=== PATIENT | female | born 1995 ===

== ENCOUNTER 2018-03-06 02:52 | Emergency (ER) | payer MEDICAID, OTHER ==
[2018-03-06 02:53] VITALS: BMI 28.5
[2018-03-06 03:07] VITALS: TEMP 98.5
[2018-03-06] MEDS ORDERED: Aluminum Hydroxide/Magnesium Hydroxide Susp (30 mL) PO STA (03:18)
[2018-03-06] MEDS ORDERED: Sodium Chloride 0.9% 500 ML IV ONE ×2 (03:18→03:26)
[2018-03-06] MEDS ORDERED: Aluminum Hydroxide/Magnesium Hydroxide Susp (30 mL) ONE (03:26)
[2018-03-06 03:29] LABS: BASO % 0.7 % (0.0-2.0); EOS # 0.2 K/uL (0.0-0.7); HEMOGLOBIN 12.4 g/dL (11.0-16.0); LYMPH # 3.1 K/uL (1.0-4.3); LYMPH % 47.7 % (20.0-40.0); MEAN CORPUSCULAR HEMOGLOBIN 29.2 pg (27.0-31.0); MEAN CORPUSCULAR HGB CONC 33.6 g/dL (33.0-37.0); MEAN PLATELET VOLUME 9.6 fL (7.2-11.7); MONO # 0.5 K/uL (0.0-0.8); MONO % 7.2 % (0.0-10.0); NEUT # 2.7 K/uL (1.8-7.0); NEUT % 41.4 % (50.0-75.0); NRBC % 0.1 % (0.0-2.0); RBC 4.25 Mil/uL (3.80-5.20); RED CELL DISTRIBUTION WIDTH 14.6 % (11.5-14.5); WHITE BLOOD COUNT 6.6 K/uL (4.8-10.8)
[2018-03-06 03:32] LABS: HCG,QUALITATIVE URINE NEGATIVE (NEGATIVE)
[2018-03-06 03:34] LABS: SQUAMOUS EPITHIAL 1 /hpf (0-5); URINE BILIRUBIN NEGATIVE (NEGATIVE); URINE BLOOD NEGATIVE (NEGATIVE); URINE CLARITY Clear (Clear); URINE COLOR Yellow (YELLOW); URINE GLUCOSE (UA) NORMAL (Normal); URINE LEUKOCYTE ESTERASE TRACE Leu/uL (Negative); URINE PROTEIN NEGATIVE (NEGATIVE); URINE UROBILINOGEN NORMAL mg/dL (0.2-1.0)
[2018-03-06 03:36] LABS: ALB/GLOB RATIO 1.3 (1.0-2.1); ALBUMIN 4.4 g/dL (3.5-5.0); ALT/SGPT 22 U/L (9-52); AST/SGOT 26 U/L (14-36); BLOOD UREA NITROGEN 12 mg/dL (7-17); CALCIUM 9.3 mg/dl (8.6-10.4); GFR NON-AFRICAN AMERICAN > 60; LIPASE 138 U/L (23-300)
--- NOTE | 2018-03-06 04:25 | C.PDOC ---
History Of Present Illness Pt presents to ED with c/o of epigastric pain radiating to mid back since last night with associated nausea. Pt denies any food association, no vomiting, diarrhea, constipation, fever, SOB, diaphoresis, dizziness. No past h/o of similar pain, no UTI sx Time Seen by Provider: 03/06/18 03:15 Chief Complaint (Nursing): Abdominal Pain History Per: Patient History/Exam Limitations: no limitations Current Symptoms Are (Timing): Still Present Severity: Moderate Location Of Pain/Discomfort: Epigastric Radiation Of Pain To:: Back Quality Of Discomfort: "Pain" Associated Symptoms: Nausea. denies: Fever, Vomiting, Chest Pain, Constipation , Urinary Symptoms Exacerbating Factors: Deep Breaths Last Bowel Movement: Today Recent travel outside of the [place]: No Past Medical History Vital Signs: Last Vital Signs Temp 98.5 F 03/06/18 03:03 Pulse 67 03/06/18 05:01 Resp 16 03/06/18 05:01 BP 106/60 03/06/18 05:01 Pulse Ox 98 03/06/18 06:01 - Medical History PMH: No Chronic Diseases Denies: Depression, Diabetes, HTN - [facility] Procedures ARTIF RUPT MEMBRANES NEC (01/24/15) DELIVERY OF PRODUCTS OF CONCEPTION, EXTERNAL APPROACH (11/23/17) MANUAL ASSIST DELIV NEC (01/24/15) REPAIR OB LACERATION NEC (01/24/15) REPAIR PERINEUM MUSCLE, OPEN APPROACH (11/23/17) Family History: States: Unknown Family Hx - Social History Hx Tobacco Use: No Hx Alcohol Use: No Hx Substance Use: No - Immunization History Hx Tetanus Toxoid Vaccination: No Hx Influenza Vaccination: No Hx Pneumococcal Vaccination: No Review Of Systems Constitutional: Negative for: Fever, Chills Cardiovascular: Negative for: Chest Pain, Palpitations Respiratory: Negative for: Shortness of Breath Gastrointestinal: Positive for: Nausea, Abdominal Pain Genitourinary: Negative for: Dysuria, Hematuria Musculoskeletal: Positive for: Back Pain Physical Exam - Physical Exam Appears: Well, Non-toxic Skin: Normal Color Head: Normacephalic Eye(s): bilateral: Normal Inspection, PERRL Chest: Symmetrical, No Tenderness Cardiovascular: Rhythm Regular Respiratory: Normal Breath Sounds Gastrointestinal/Abdominal: Bowel Sounds, Soft, Tenderness (epigatric/ RUQ), No Distention, No Guarding, No Rebound, Other ((+) pretty sign) Back: Normal Inspection, No CVA Tenderness Neurological/Psych: Oriented x3, Normal Speech Gait: Steady ED Course And Treatment - Laboratory Results Result Diagrams: 03/06/18 03:24 03/06/18 03:24 O2 Sat by Pulse Oximetry: 98 Pulse Ox Interpretation: Normal - CT Scan/US RUQ US Other Rad Studies (CT/US): Read By Radiologist, Radiology Report Reviewed CT/US Interpretation: Cholelithiasis with small pericholecystic fluid Progress Note: Pt with epigastric pain radiating to back. DDX; most likelyBiliary colic vs Gastritis. . Less likely-Abdominal aneurysm/ dissection. Labs, RUQ US ordered. toradol IV, pepcid IV ordered. Labs and US findinngs d/w pt. Pt is now comfortable, pain has resolved , taking PO with no vomiting or recurring pain. Pt advised PMD/ gen surg f/u. Diet and return precautions discussed to pt and relatives at bedside. Pt understand and agrees with plan Reevaluation Time: 05:58 Reassessment Condition: Improved Disposition Counseled Patient/Family Regarding: Studies Performed, Diagnosis, Need For Followup, Rx Given - Disposition Referrals: Onel Miguel MD [Staff Provider] - [facility] [Outside] Disposition: HOME/ ROUTINE Disposition Time: 05:59 Condition: STABLE Additional Instructions: Avoid greasy foods, fried foods, red meat Take meds as needed for pain Follow up with clinic and Dr miguel Return to ER if pain unrelieved with pain meds, fever , vomiting or worse Prescriptions: Naproxen [Naprosyn] 1 tab PO BID PRN #20 tab PRN Reason: Pain Instructions: Gallstones (DC) Forms: [employer] (Irish) Print Language: CANADIAN - Clinical Impression Clinical Impression: Colic, biliary
[2018-03-06 05:02] VITALS: RESP 16
[2018-03-06 06:11] VITALS: BP 124/64; PULSE 66
[2018-03-06 06:14] VITALS: O2SAT 98
--- NOTE | 2018-03-06 12:58 | US ---
Right upper quadrant abdominal ultrasound History: Epigastric pain. Comparison: None available. Technique: Real-time sonography was performed through the right upper quadrant of the abdomen. Findings: Liver: 13.9 centimeters in length. Normal echogenicity. Gallbladder: Cholelithiasis and sludge. Prominent calculus noted at the neck of the gallbladder measuring 1.5 x 1.0 x 1.9 centimeters. Normal gallbladder wall thickness of 2.3 millimeters. Small amount of pericholecystic fluid. Negative sonographic Ponce's sign. Common bile duct measures 4 millimeters, within normal limits. Limited visualization of the pancreas. Visualized aorta and IVC are preserved. Right kidney: 10.7 x 4.2 x 4.9 centimeters. No calculi or hydronephrosis. Impression: Cholelithiasis and sludge in the gallbladder with associated mild pericholecystic fluid. Normal wall thickness of 2.3 millimeters. Negative sonographic Ponce's sign. Clinical correlation. If there is persistent concern for cholecystitis, consider correlation with a nuclear medicine study. Limited visualization of the pancreas.
== END 2018-03-06 06:12 | disposition home or self-care (01) ==
LOC: C.ER 02:52
DX: K80.50 Calculus of bile duct without cholangitis or cholecystitis without obstruction (principal)
CPT/HCPCS: 76705; 80053; 81001; 83690; 84703; 85025; 96374; 96375; 99285; J1885; J2405; J7040